=== PATIENT | female | born 1955 | race Caucasian/White ===

== ENCOUNTER 2017-12-06 13:09 | Day surgery (SDC) | payer BC ==
[2017-12-06] MEDS ORDERED: PROPOFOL 40 ML (14:55)
[2017-12-06] MEDS ORDERED: FENTAnyl 50 MCG/ML VIAL (15:26)
== END 2017-12-06 17:33 | disposition home or self-care (01) ==
LOC: GIL 13:09
DX: Z12.11 Encounter for screening for malignant neoplasm of colon (principal); D12.2 Benign neoplasm of ascending colon; D17.5 Benign lipomatous neoplasm of intra-abdominal organs; K29.70 Gastritis, unspecified, without bleeding; I10 Essential (primary) hypertension; E66.9 Obesity, unspecified; Z68.29 Body mass index [BMI] 29.0-29.9, adult
CPT/HCPCS: 43239; 88305; 88312

== ENCOUNTER 2018-07-24 10:19 | Emergency (ER) | payer BC ==
[2018-07-24 12:19] LABS: ADD MAN DIFF? NO
[2018-07-24 12:20] LABS: BASOPHIL # 0.1 10^3/ul (0.0-0.1); BASOPHILS % 0.9 % (0.0-2.0); EOSINOPHILS # 0.1 10^3/ul (0.0-0.5); EOSINOPHILS % 0.9 % (0.0-7.0); HEMATOCRIT 40.2 % (37.0-47.0); HEMOGLOBIN 13.8 g/dl (12.0-16.0); LYMPHOCYTES # 2.5 10^3/ul (0.8-2.9); LYMPHOCYTES % 31.5 % (15.0-51.0); MEAN CORPUSCULAR HEMOGLOBIN 28.8 pg (29.0-33.0); MEAN CORPUSCULAR HGB CONC 34.3 g/dl (32.0-37.0); MEAN CORPUSCULAR VOLUME 83.8 fl (82.0-101.0); MEAN PLATELET VOLUME 10.8 fl (7.4-10.4); MONOCYTE # 0.4 10^3/ul (0.3-0.9); NEUTROPHIL # 4.9 10^3/ul (1.6-7.5); NEUTROPHILS % 60.9 % (39.0-77.0); PLATELET COUNT 344 10^3/UL (140-415)
[2018-07-24] MEDS: SOD CHLORIDE 0.9% 500 ML IV (12:24)
[2018-07-24] MEDS: KETOROLAC 15 MG INJ IV (12:25)
[2018-07-24 12:40] LABS: ALANINE AMINOTRANSFERASE 25 IU/L (13-69); ALBUMIN 4.2 g/dl (3.3-4.9); ALBUMIN/GLOBULIN RATIO 1.16; ALKALINE PHOSPHATASE 137 IU/L (42-121); ANION GAP 10 (5-13); ASPARTATE AMINO TRANSFERASE 27 IU/L (15-46); BILIRUBIN,INDIRECT 0.2 mg/dl (0-1.1); BILIRUBIN,TOTAL 0.2 mg/dl (0.2-1.3); BLOOD UREA NITROGEN 15 mg/dl (7-20); CALCIUM 9.7 mg/dl (8.4-10.2); CARBON DIOXIDE 26 mmol/L (21-31); CHLORIDE 107 mmol/L (97-110); CREATININE 0.57 mg/dl (0.44-1.00); Estimated GFR > 60 mL/min (>60); GLUCOSE 115 mg/dl (70-220); LIPASE 44 U/L (23-300); POTASSIUM 3.9 mmol/L (3.5-5.1); SODIUM 143 mmol/L (135-144); TOTAL PROTEIN 7.8 g/dl (6.1-8.1)
[2018-07-24 12:50] LABS: TROPONIN-I < 0.012 ng/ml (0.000-0.120)
== END 2018-07-24 13:58 | disposition home or self-care (01) ==
LOC: E/R 10:19
DX: S16.1XXA Strain of muscle, fascia and tendon at neck level, initial encounter (principal); R20.2 Paresthesia of skin; M54.12 Radiculopathy, cervical region; I10 Essential (primary) hypertension; X58.XXXA Exposure to other specified factors, initial encounter; Y92.009 Unspecified place in unspecified non-institutional (private) residence as the place of occurrence of the external cause
CPT/HCPCS: 36415; 80053; 83690; 84484; 85025; 93005; 96374; 99284-25